=== PATIENT | female | born 1990 | race Caucasian/White ===

== ENCOUNTER → 2017-02-10 | Outpatient (CLI) | payer OTHER ==
[~2017-02-10] VITALS: Ht 160 cm; Wt 107.4 kg
[~2017-02-10] MED LIST: ADVIL100 M2 PO; BETAMETHASONE D15 G1 TP; HYDROCODONE-AP1 EAC6 PO; HYDROCODONE-APA1 TA1 PO; LIORESAL 10 MG10 MG PO; LORYNA 3 MG-0.1 EACH PO; LYRICA100 MG PO; METFORMIN HCL500 MG PO; NEURONTIN 300300 M1 PO; TIZANIDINE HCL4 MG PO
--- NOTE | ~2017-02-10 | HPC ---
[facility] [place] [address] PAIN MANAGEMENT CONSULTATION Name: AMA PIZARROMARIANNA L Room #: REG Briana Jay#: [id number] Admission: 02/10/17 Attend Phys: Jameel Traore DO Discharge: Date of : 86 Report #: [id number] THIS REPORT FOR: //name// CC: Geovanna Traore DATE OF SERVICE: 02/11/2017 The patient is a pleasant 26-year-old female being treated for symptomatic lumbar radiculopathy status post decompressive laminectomy. She had a midline epidural injection with about 60% overall improvement in December, but symptoms have recurred primarily in the left side in the L5 distribution. We sought authorization for left L5-S1 transforaminal epidural injection, this was authorized for today. She presents to pain clinic today with ongoing pain, left leg, buttock, posterior aspect of the leg. Pain is exacerbated with standing and walking. Physical exam still shows positive straight leg raise on the left. ASSESSMENT: Symptomatic lumbar radiculopathy status post decompressive laminectomy. PROCEDURE: Left L5-S1 transforaminal epidural injection under fluoroscopy. PROCEDURE NOTE: After both written and informed consent was obtained including risk of spinal cord damage, infection, increased pain and paralysis, the patient agreed to proceed. The patient was taken to the fluoroscopy suite, placed in a prone position with appropriate abdominal bolstering. After sterile prep with ChloraPrep and sterile drape, a skin wheal with 1% Xylocaine was raised. A 22 gauge 4-1/2 inch epidural Tuohy needle was inserted. From an oblique approach into the posterior-superior aspect of the left L5-S1 neural foramen with continuous pressure on the glass syringe plunger for loss of resistance. Glass syringe was filled with 2 cc of 0.1 Xylocaine. The glass loss of resistance syringe was removed. A low volume extension tubing was connected, negative aspiration was accomplished for cerebrospinal fluid or blood. 1 mL of Omnipaque was injected which showed spread both within the epidural space and laterally along the nerve root. This was followed with 80 mg of triamcinolone plus 1 mL of 1.5% preservative-free Xylocaine. Needle was partially withdrawn, 0.5 mL of Xylocaine was injected to clear the needle and the needle was removed. The area was cleansed, band-aid was applied. The patient was allowed to ambulate to the recovery room, discharged in [place] [address] PAIN MANAGEMENT CONSULTATION Name: MARIANNA BUENO Room #: REG CL Misty#: [id number] Admission: 02/10/17 Attend Phys: Jameel Traore DO Discharge: Date of : 86 Report #: [id number] Follow up in 2 weeks for reevaluation. <ELECTRONICALLY SIGNED> By: Jameel Traore DO 02/11/17 1138 [id number] 1 Jameel Traore DO /tayler
[2017-02-10 13:48] VITALS: BP 112/57
== END ==
LOC: PAIN 07:13
DX: M54.16 Radiculopathy, lumbar region (principal); M96.1 Postlaminectomy syndrome, not elsewhere classified; F32.9 Major depressive disorder, single episode, unspecified

== ENCOUNTER → 2017-05-05 | Outpatient (CLI) | payer OTHER ==
[~2017-05-05] VITALS: Ht 160 cm; Wt 98.2 kg
[~2017-05-05] MED LIST changes: +NABUMETONE 750750 M1 PO; +PERCOCET 7.5-31 EACH PO
--- NOTE | ~2017-05-05 | HPC ---
[facility] [place] [address] PAIN MANAGEMENT CONSULTATION Name: AMA PIZARRO,MARIANNA L Room #: REG [facility] Misty#: [id number] Admission: 05/05/17 Attend Phys: Jameel Traore DO Discharge: Date of : 86 Report #: [id number] THIS REPORT FOR: //name// CC: Geovanna Traore SUBJECTIVE: The patient is a very pleasant 26-year-old female. She was given 2 lumbar epidural injections, January 06, and again, February 10 (left L5-S1 transforaminal). She prior had a left L5-S1 hemilaminectomy about a year and a half ago, November 2015. She returns to pain clinic today noting that the first injection gave her 60% relief. The second injection again gave her very good relief, the patient notes up to 80% relief for about 2 months, pain has recurred without antecedent trauma and overuse. Pain is very specifically on the left leg. It is exquisitely painful at this moment. She rates it 9/10, significantly exacerbates with standing, walking and bending. PHYSICAL EXAMINATION: GENERAL: A 26-year-old female, BMI is 30.3 kilograms per meter squared, very pleasant young woman who works at [employer]. VITAL SIGNS: Blood pressure 130/69, pulse 70, respirations 16. MUSCULOSKELETAL: Difficult to ambulate, stand or bend. She rises from a chair using the armrest, markedly antalgic gait. Left leg shows diminished strength to plantar flexion, dorsiflexion and lower extremity extension. Grossly positive straight leg raise bilaterally, left much more than right. Left Achilles reflex is diminished compared to the right. ASSESSMENT: Symptomatic lumbar radiculopathy status post decompressive laminectomy, acute exacerbation of neuropathic pain requiring complex medication management. RECOMMENDATION: 1. We have elected to give the patient 30 mg of Toradol injection today. 2. We will order an MRI with and without contrast due to the exquisite exacerbation of pain in this patient who is now a year and a half status post surgery. We will seek authorization for repeat L5-S1 transforaminal epidural injection at next visit. Again, she has had 60% and 80% respectively with prior injections. Pain, however, is quite problematic at this point. I have taken the liberty of writing for nabumetone 750 b.i.d., Percocet 7.5/325, dispensed 75 tablets and tizanidine 4 mg at bedtime for spasm. 3. The patient was given 30 mg injection of IM Toradol, monitored for an appropriate period of time, discharged in good and [place] [address] PAIN MANAGEMENT CONSULTATION Name: MARIANNA BUENO Room #: REG AB Jay#: [id number] Admission: 05/05/17 Attend Phys: Jameel Traore DO Discharge: Date of : 86 Report #: [id number] seek authorization for left L5-S1 transforaminal epidural injection at next visit. We will also order the aforementioned MRI with and without contrast. By: [id number] Jameel Traore DO /nt
[2017-05-05 13:17] VITALS: BP 130/69
== END | disposition home or self-care (01) ==
LOC: PAIN 02-28 13:27
DX: M54.16 Radiculopathy, lumbar region (principal); Z98.890 Other specified postprocedural states

== ENCOUNTER → 2017-05-23 | Outpatient (CLI) | payer OTHER ==
[~2017-05-23] VITALS: Ht 160 cm; Wt 96.7 kg
[2017-05-23 13:14] VITALS: BP 119/61
== END | disposition home or self-care (01) ==
LOC: PAIN 06:48
DX: M54.16 Radiculopathy, lumbar region (principal); Z98.890 Other specified postprocedural states